=== PATIENT | male | born 1945 | race Caucasian/White ===

== ENCOUNTER 2017-01-08 13:06 | Inpatient (IN) ==
[2017-01-08] MEDS ORDERED: IOPAMIDOL 100 ML BOTTLE IV ONE (13:07)
[2017-01-08] MEDS ORDERED: ONDANSETRON 4 MG/2 ML VIAL IV ONE (13:28)
[2017-01-08] MEDS ORDERED: LACTATED RINGERS 1,000 ML IV ONE (13:28)
[2017-01-08 14:10] LABS: Basophils # (Auto) 0 K/mcL (0.0-0.3); Basophils % (Auto) 0.5 % (0.0-2.0); Eosinophils # (Auto) 0.2 K/mcL (0.0-0.7); Eosinophils % (Auto) 2.5 % (0.0-7.0); Granulocytes % (Auto) 78.7 % (38.0-78.0); Lymphocytes % (Auto) 10.7 % (15.5-49.0); Mean Cell Volume 95.6 fL (80.0-100.0); Mean Corpuscular HGB Conc 32.2 g/dL (31.0-36.0); Mean Corpuscular Hemoglobin 30.8 pg (26.0-34.0); Monocytes # (Auto) 0.7 K/mcL (0.1-0.9); Monocytes % (Auto) 7.6 % (1.0-12.0); Platelet Count 183 K/mcL (140-440); RBC 5.48 M/mcL (4.50-5.90); Red Cell Distribution Width 16.2 % (11.5-14.5)
[2017-01-08 14:29] LABS: Appearance,Urine CLEAR; Bilirubin,Urine NEG (NEG); Color,Urine STRAW; Glucose,Urine (UA) NEGATIVE (NEG); Leukocyte Esterase,Urine NEG /uL (NEG); Nitrate,Urine NEG (NEG); Protein,Urine NEG (NEG); Specific Gravity,Urine 1.009 (1.000-1.035); Urine Blood NEG mg/dL (<0.03); Urobilinogen,Urine NEG (NEG)
[2017-01-08 14:30] LABS: ALT/SGPT 18 U/l (0-40); Albumin 4.3 gm/dL (3.2-5.2); Albumin/Globulin Ratio 1.3 (1.0-2.3); Alkaline Phosphatase 108 U/L (39-117); Blood Urea Nitrogen 35 mg/dl (8-23)
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
[2017-01-08] MEDS ORDERED: 0.9 % SODIUM CHLORIDE 250 ML IV SCH ×2 (16:30→17:15)
[2017-01-08] MEDS ORDERED: HYDROmorphone 2 MG/ML SYRINGE IV PRN (16:49)
[2017-01-08] MEDS ORDERED: PROMETHAZINE 25 MG/ML VIAL IV PRN (16:49)
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
[2017-01-08] MEDS: 0.9 % SODIUM CHLORIDE 1,000 ML IV SCH ×2 (18:44→18:58)
[2017-01-08] MEDS: CARVEDILOL 6.25 MG TABLET PO SCH (19:08)
[2017-01-08] MEDS: FAMOTIDINE 20 MG TABLET PO SCH (20:08)
[2017-01-08] MEDS: HYDROmorphone 2 MG TABLET PO PRN (20:08)
[2017-01-08] MEDS: 0.9 % SODIUM CHLORIDE 10 ML SYRINGE IV SCH (21:30)
[2017-01-09] MEDS: HYDROmorphone 2 MG TABLET PO PRN (00:19)
[2017-01-09] MEDS: 0.9 % SODIUM CHLORIDE 10 ML SYRINGE IV SCH ×2 (05:20→14:16)
[2017-01-09 05:39] LABS: Mean Cell Volume 96.2 fL (80.0-100.0); Mean Corpuscular HGB Conc 33.2 g/dL (31.0-36.0); Platelet Count 202 K/mcL (140-440); RBC 4.52 M/mcL (4.50-5.90); Red Cell Distribution Width 16.5 % (11.5-14.5)
[2017-01-09 06:20] LABS: ALT/SGPT 16 U/l (0-40); Albumin 3.5 gm/dL (3.2-5.2); Albumin/Globulin Ratio 1.1 (1.0-2.3); Alkaline Phosphatase 90 U/L (39-117); Bilirubin,Direct 0.5 mg/dL (0.0-0.3); Blood Urea Nitrogen 27 mg/dl (8-23); Gamma Glutamyl Transpeptidase 103 U/L (8-61); Magnesium 1.9 mg/dL (1.6-2.5); Uric Acid 4.1 mg/dL (2.5-8.0)
[2017-01-09 06:42] LABS: Anisocytosis 1+ (NONE SEEN); Band Neutrophils % 1 % (0-10); Basophils % (Manual) 1 % (0-2); Eosinophils % (Manual) 2 % (0-7); Lymphocytes % 16 % (15-49); Monocytes % (Manual) 12 % (1-12); Platelet Estimate NORMAL (NORMAL); RBC Morphology ABNORMAL (NORMAL); Segmented Neutrophils % 67 % (38-78)
[2017-01-09] MEDS ORDERED: 0.9 % SODIUM CHLORIDE 250 ML IV SCH (07:15)
[2017-01-09] MEDS ORDERED: IOPAMIDOL 100 ML BOTTLE IV ONE (07:58)
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
[2017-01-09] MEDS: CARVEDILOL 6.25 MG TABLET PO SCH ×2 (10:04→17:39)
[2017-01-09] MEDS: ASPIRIN 81 MG TAB.CHEW CHEWED SCH (10:19)
[2017-01-09] MEDS: FAMOTIDINE 20 MG TABLET PO SCH ×2 (10:20→20:22)
[2017-01-09] MEDS: PHYTONADIONE 10 MG in 0.9 % SODIUM CHLORIDE 50 ML IV SCH ×2 (10:20→15:57)
[2017-01-09] MEDS: 0.9 % SODIUM CHLORIDE 1,000 ML IV SCH (14:16)
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
[2017-01-09] MEDS: FUROSEMIDE 40 MG TABLET PO SCH (17:38)
[2017-01-09] MEDS: POTASSIUM CHLORIDE 10 MEQ TABLET PO SCH (17:38)
[2017-01-09 17:56] LABS: Basophils # (Auto) 0 K/mcL (0.0-0.3); Basophils % (Auto) 0.1 % (0.0-2.0); Eosinophils # (Auto) 0.2 K/mcL (0.0-0.7); Eosinophils % (Auto) 2.9 % (0.0-7.0); Granulocytes % (Auto) 74.6 % (38.0-78.0); Lymphocytes % (Auto) 12.6 % (15.5-49.0); Mean Cell Volume 97.3 fL (80.0-100.0); Mean Corpuscular HGB Conc 32.7 g/dL (31.0-36.0); Mean Corpuscular Hemoglobin 31.8 pg (26.0-34.0); Monocytes # (Auto) 0.8 K/mcL (0.1-0.9); Monocytes % (Auto) 9.8 % (1.0-12.0); Platelet Count 161 K/mcL (140-440); RBC 4.29 M/mcL (4.50-5.90)
[2017-01-10] MEDS: 0.9 % SODIUM CHLORIDE 10 ML SYRINGE IV SCH ×4 (01:31→20:15)
[2017-01-10] MEDS: HYDROmorphone 2 MG TABLET PO PRN (03:53)
[2017-01-10 06:34] LABS: Basophils # (Auto) 0 K/mcL (0.0-0.3); Basophils % (Auto) 0.1 % (0.0-2.0); Eosinophils # (Auto) 0.3 K/mcL (0.0-0.7); Eosinophils % (Auto) 2.8 % (0.0-7.0); Granulocytes % (Auto) 77.2 % (38.0-78.0); Lymphocytes # (Auto) 0.9 K/mcL (1.5-4.8); Lymphocytes % (Auto) 9.5 % (15.5-49.0); Mean Cell Volume 97.4 fL (80.0-100.0); Mean Corpuscular HGB Conc 32.4 g/dL (31.0-36.0); Mean Corpuscular Hemoglobin 31.6 pg (26.0-34.0); Monocytes % (Auto) 10.4 % (1.0-12.0); Platelet Count 158 K/mcL (140-440); RBC 4.21 M/mcL (4.50-5.90); Red Cell Distribution Width 16.2 % (11.5-14.5)
[2017-01-10] MEDS: MAGNESIUM OXIDE 400 MG TABLET PO SCH (08:18)
[2017-01-10] MEDS: FUROSEMIDE 40 MG TABLET PO SCH (08:18)
[2017-01-10] MEDS: OLMESARTAN MEDOXOMIL 20 MG TABLET PO SCH (08:18)
[2017-01-10] MEDS: ASPIRIN 81 MG TAB.CHEW CHEWED SCH (08:18)
[2017-01-10] MEDS: FAMOTIDINE 20 MG TABLET PO SCH ×2 (08:18→20:15)
[2017-01-10] MEDS: CARVEDILOL 6.25 MG TABLET PO SCH ×2 (08:19→17:03)
[2017-01-10] MEDS: POTASSIUM CHLORIDE 10 MEQ TABLET PO SCH ×2 (08:19→17:03)
[2017-01-10] MEDS ORDERED: FUROSEMIDE 40 MG/4 ML VIAL IV ONE (08:53)
--- NOTE | 2017-01-10 09:44 | XRay Report ---
HISTORY: Reason for Exam:Follow up for chest injury/trauma FINDINGS: The lungs are clear normally expanded. There is no pneumothorax or pleural effusion. The mediastinum is no abnormally widened. The heart remains moderately enlarged. There is no congestive heart failure. Fractured head of left clavicle is again seen. There has been no significant change since 01/09/17. IMPRESSION: Cardiomegaly and no acute abnormality within the chest except for the fractured left clavicle Interpreted and Authenticated by: Alvaro Franco 01/10/17
[2017-01-10 10:12] LABS: Blood Urea Nitrogen 21 mg/dl (8-23)
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
[2017-01-10] MEDS: FUROSEMIDE 80 MG TABLET PO SCH (15:37)
[2017-01-11] MEDS: FUROSEMIDE 80 MG TABLET PO SCH ×3 (05:28→14:15)
[2017-01-11] MEDS: 0.9 % SODIUM CHLORIDE 10 ML SYRINGE IV SCH ×2 (05:29→13:34)
[2017-01-11 06:30] LABS: Basophils # (Auto) 0 K/mcL (0.0-0.3); Basophils % (Auto) 0.2 % (0.0-2.0); Eosinophils # (Auto) 0.2 K/mcL (0.0-0.7); Granulocytes % (Auto) 81.1 % (38.0-78.0); Lymphocytes # (Auto) 0.6 K/mcL (1.5-4.8); Lymphocytes % (Auto) 7.6 % (15.5-49.0); Mean Cell Volume 97.6 fL (80.0-100.0); Mean Corpuscular HGB Conc 32.7 g/dL (31.0-36.0); Mean Corpuscular Hemoglobin 31.9 pg (26.0-34.0); Monocytes # (Auto) 0.8 K/mcL (0.1-0.9); Monocytes % (Auto) 9.1 % (1.0-12.0); Platelet Count 154 K/mcL (140-440); RBC 4.29 M/mcL (4.50-5.90); Red Cell Distribution Width 16.2 % (11.5-14.5)
[2017-01-11] MEDS: ASPIRIN 81 MG TAB.CHEW CHEWED SCH (07:28)
[2017-01-11] MEDS: MAGNESIUM OXIDE 400 MG TABLET PO SCH (07:28)
[2017-01-11] MEDS: FAMOTIDINE 20 MG TABLET PO SCH (07:28)
[2017-01-11] MEDS: CARVEDILOL 6.25 MG TABLET PO SCH (07:29)
[2017-01-11] MEDS: OLMESARTAN MEDOXOMIL 20 MG TABLET PO SCH (07:36)
[2017-01-11] MEDS: POTASSIUM CHLORIDE 10 MEQ TABLET PO SCH (07:38)
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
== END 2017-01-11 15:02 | disposition home or self-care (01) | DRG 563 ==
LOC: ED 13:06 → MEDSUR 17:39
PROVIDERS: ADMIT Family Medicine Adult Medicine; ATTEND Family Medicine Adult Medicine